=== PATIENT | female | born 1945 | race Caucasian/White ===

== ENCOUNTER → 2021-11-23 | Outpatient (CLI) | payer MEDICARE, BC ==
--- NOTE | 2021-11-23 16:34 | KCIC ---
EXAM: XR THORACIC SPINE 3VIEWS, XR LUMBAR SPINE 2-3V 11/23/2021 1:08 PM CLINICAL INDICATION: Spinal cord stimulator placed 08/12. Pain is returning. COMPARISON: None TECHNIQUE: AP, lateral, and swimmer's views of the thoracic spine. AP, lateral, and coned-down later al views of the lumbar spine. FINDINGS: Thoracic spine: 1 spinal stimulator lead extends cranially along the lower dorsal thoracic canal, ter minating at T8. The other spinal stimulator lead terminates at T12. The bones are diffusely demineral ized. There is mild superior endplate compression deformity of T11 with 25 percent height loss anteri nawaf and no retropulsion. Mild disc space narrowing throughout the thoracic spine. There is a ventric uloperitoneal shunt catheter traversing the right hemithorax and right hemiabdomen. Lumbar spine: There is mild S-shaped thoracolumbar scoliosis. The bones are diffusely demineralized. Spinal stimulator leads entering the canal at T12-L1. One lead appears to terminate at T12 and the ot her at T8, as above. There is a mild compression fracture at T11, as above. There is severe space zahida rowing throughout the lumbar spine with degenerative endplate changes. There is 4 mm retrolisthesis o f L1 on L2 and L2 on L3. There is multilevel facet arthrosis. Mild degenerative joint disease of the hips. PREVENTIVE MEDICINE SPECIALIST shunt catheter tubing in the right hemiabdomen and pelvis. IMPRESSION: 1. Spinal stimulator with one lead extending to the level of T8 and the other to the level of T12. 2. Osteopenia. 3. Mild degenerative disc disease throughout the thoracic spine. 4. Severe degenerative disc disease in the lumbar spine. 5. Age indeterminate compression fracture of T11 with 25 percent height loss, no retropulsion. Electronically signed by: Jeane Walker MD (11/23/2021 4:32 PM) [id number]
== END ==
LOC: KCIC 12:59
PROVIDERS: ATTEND Anesthesiology Pain Medicine
DX: S22.080A Wedge compression fracture of T11-T12 vertebra, initial encounter for closed fracture (principal); T85.192A Other mechanical complication of implanted electronic neurostimulator of spinal cord electrode (lead), initial encounter; M41.85 Other forms of scoliosis, thoracolumbar region; M43.16 Spondylolisthesis, lumbar region; M48.061 Spinal stenosis, lumbar region without neurogenic claudication; M47.816 Spondylosis without myelopathy or radiculopathy, lumbar region; M85.88 Other specified disorders of bone density and structure, other site; M51.35 Other intervertebral disc degeneration, thoracolumbar region; X58.XXXA Exposure to other specified factors, initial encounter; Y93.89 Activity, other specified; Y92.89 Other specified places as the place of occurrence of the external cause; Y99.8 Other external cause status
CPT/HCPCS: 72072; 72100